=== PATIENT | male | born 1990 | race Caucasian/White ===

== ENCOUNTER 2017-09-13 12:07 | Emergency (ER) | payer SELFPAY ==
[~2017-09-13] VITALS: Ht 190.5 cm; Wt 99.8 kg
--- NOTE | 2017-09-13 12:10 | NUR ---
BBRA FOR LEFT SIDED CHEST TIGHTNESS ON/OFF X 1 WEEK. PATIENT ALSO STATING HE'S HAD REFLUX IN THE PAST. PATIENT IS A/OX 4. BREATHING EVEN AND UNLABORED. NO SOB, NAD, VITALS STABLE. SKIN WARM AND DRY. SAFETY AND COMFORT MEASURES IN PLACE. AWAITING MD ORDERS.
--- NOTE | 2017-09-13 12:25 | NUR ---
NEW IV STARTED ON LAC, 18G. BLOOD DRAWN AND SENT TO LAB.
[2017-09-13 12:32] LABS: BASOPHILS # (AUTO) 0.1 /CMM (0.0-0.2); BASOPHILS % (AUTO) 1.2 % (0.0-2.0); EOSINOPHILS % (AUTO) 1.2 % (0.0-6.0); HEMATOCRIT 45 % (39-51); HEMOGLOBIN 15.5 g/dL (13.5-17.5); LYMPHOCYTES % (AUTO) 30.3 % (20.0-44.0); MEAN CORPUSCULAR HGB CONC 35 g/dl (31.0-36.0); MEAN CORPUSCULAR VOLUME 92 fL (80-96); MONOCYTES # (AUTO) 0.4 /CMM (0.1-1.30); MONOCYTES % (AUTO) 6.3 % (2.0-12.0); PLATELET COUNT (AUTO) 214 /CMM (150-450); RED BLOOD CELL COUNT(AUTO) 4.84 MIL/uL (4.5-6.0); WHITE BLOOD COUNT (AUTO) 6.6 K/uL (4.3-11.0)
[2017-09-13 12:41] LABS: CALCIUM, SERUM 9.2 mg/dL (8.5-10.1); CARBON DIOXIDE 27 mmol/L (21-32); CHLORIDE 103 mmol/L (98-107); CREATININE 1.2 mg/dL (0.6-1.3); GLUCOSE 103 mg/dL (74-106); POTASSIUM 3.8 mmol/L (3.5-5.1); SODIUM SERUM 138 mmol/L (136-145); UREA NITROGEN, BLOOD 20 mg/dL (7-18)
[2017-09-13 12:50] LABS: TROPONIN I < 0.017 ng/mL (0.00-0.056)
[2017-09-13 12:56] LABS: D-DIMER 0.19 mg/L(FEU (0.17-0.50)
[2017-09-13 13:14] VITALS: BP 106/51
--- NOTE | 2017-09-13 13:14 | NUR ---
IV removed. Catheter intact and site benign. Pressure and 4x4 applied to site. No bleeding noted. Patient discharged to home in stable condition. Written and verbal after care instructions given. Patient verbalizes understanding of instruction.
== END 2017-09-13 13:15 | disposition home or self-care (01) ==
LOC: ER 12:08
DX: R07.89 Other chest pain (principal)
CPT/HCPCS: 36415; 71045; 80048; 84484; 85025; 85378; 85730; 93005; 99285; A4606; A6402; Z7610